=== PATIENT | male | born 1965 | race Caucasian/White ===

== ENCOUNTER 2018-05-04 16:37 | Emergency (ER) | payer OTHER, SELFPAY ==
[2018-05-04] MEDS ORDERED: Ibuprofen 800 MG TAB ONE (16:57)
== END 2018-05-04 17:43 | disposition home or self-care (01) ==
LOC: NAV ERS 16:37
DX: J06.9 Acute upper respiratory infection, unspecified (principal); F41.9 Anxiety disorder, unspecified; F32.9 Major depressive disorder, single episode, unspecified; I10 Essential (primary) hypertension; F17.220 Nicotine dependence, chewing tobacco, uncomplicated; Z79.899 Other long term (current) drug therapy
CPT/HCPCS: 87804; 99283

== ENCOUNTER 2019-04-03 16:35 | Emergency (ER) | payer BC, SELFPAY ==
--- NOTE | 2019-04-03 17:43 | RAD ---
RADIOGRAPH CHEST 2 VIEWS: DATE: 04/03/2019 HISTORY: 53-year-old male with productive cough FINDINGS: There is no airspace density, pulmonary edema, pleural effusion, pneumothorax, or cardiomegaly. IMPRESSION: No acute cardiopulmonary findings.
== END 2019-04-03 18:06 | disposition home or self-care (01) ==
LOC: NAV ERS 16:35
DX: R05 Cough (principal); F41.9 Anxiety disorder, unspecified; F32.9 Major depressive disorder, single episode, unspecified; F17.220 Nicotine dependence, chewing tobacco, uncomplicated; I10 Essential (primary) hypertension; Z79.899 Other long term (current) drug therapy
CPT/HCPCS: 71046

== ENCOUNTER 2021-10-26 17:14 | Emergency (ER) | payer BC, SELFPAY ==
[2021-10-26 17:41] LABS: #Basophils 0.2 thou/uL (0.0-0.2); #Eosinphils 0.2 thou/uL (0.0-0.7); #Lymphocytes 4.6 thou/uL (1.20-3.40); #Monocytes 0.8 thou/uL (0.11-0.59); #Neutrophils 3.3 thou/uL (1.40-6.50); %Basophils 2.2 % (0.0-1.0); %Eosinophils 2.7 % (0.0-10.0); %Lymphocytes 50.5 % (21.0-51.0); %Monocytes 8.5 % (0.0-10.0); %Neutrophils 36.2 % (42.0-75.0); Hemoglobin 14.8 g/dL (14.0-18.0); Mean Corpuscular HGB CONC 32.3 g/dL (32.0-36.0); Mean Corpuscular Hemoglobin 31.7 pg (27.0-31.0); Mean Corpuscular Volume 98.3 fL (78.0-98.0); Mean Platelet Volume 9.9 fL (7.4-10.4); Platelet Count 210 thou/uL (130-400); RBC Distribution Width 11.9 % (11.5-14.5); Red Blood Cell (RBC) Count 4.67 mill/uL (4.70-6.10); White Blood Cell (WBC) Count 9.1 thou/uL (4.8-10.8)
[2021-10-26 17:57] LABS: PTT 26.5 sec (22.9-36.1); Prothrombin Time 13.4 sec (12.0-14.7)
[2021-10-26] MEDS ORDERED: Sodium Chloride 0.9% 1,000 ML ONE ×2 (17:59→19:44)
[2021-10-26 18:04] LABS: ALT (SGPT) 65 U/L (8-55); AST (SGOT) 53 U/L (5-34); Albumin 4.2 g/dL (3.5-5.0); Alkaline Phosphatase 57 U/L (40-110); Anion Gap 22 mmol/L (10-20); BUN (Urea Nitrogen) 38 mg/dL (8.4-25.7); Bilirubin, Total 0.5 mg/dL (0.2-1.2); Calc. Creatinine Clearance 0 mL/min (70-130); Calcium 8.9 mg/dL (7.8-10.44); Carbon Dioxide 19 mmol/L (22-29); Chloride 100 mmol/L (98-107); Estimated GFR 30; Globulin 2.9 g/dL (2.4-3.5); Glucose 135 mg/dL (70-105); Potassium 3.8 mmol/L (3.5-5.1); Protein, Total 7.1 g/dL (6.0-8.3); Sodium 137 mmol/L (136-145)
[2021-10-26] MEDS ORDERED: Pantoprazole 40 MG VIAL ONE (18:25)
[2021-10-26 20:58] LABS: Bilirubin Negative (Negative); Blood, Urine Negative (Negative); Clarity Clear (Clear); Glucose, Urine (Dipstick) Negative (Negative); Ketone, Urine Negative (Negative); Leukocyte Negative (Negative); Nitrite Negative (Negative); Protein, Urine (Dipstick) Negative (Neg-Trace); Urobilinogen 0.2 mg/dL (Less than 2); pH, Urine 5.5 (5.0-9.0)
[2021-10-26 21:01] LABS: Specific Gravity, Urine 1.008 (1.002-1.036)
== END 2021-10-27 04:05 | disposition home or self-care (01) ==
LOC: NAV ERS 17:14
DX: I95.9 Hypotension, unspecified (principal); F10.129 Alcohol abuse with intoxication, unspecified; E86.0 Dehydration; I10 Essential (primary) hypertension; F17.220 Nicotine dependence, chewing tobacco, uncomplicated
CPT/HCPCS: 71045; 80053; 80307; 81003; 82274; 84484; 85025; 85610; 85730; 93005; 96361; 96374; C9113; J7050

== ENCOUNTER 2024-02-16 23:04 | Emergency (ER) | payer SELFPAY ==
[2024-02-16] MEDS ORDERED: Acetaminophen 325 MG TAB ONE (23:40)
== END 2024-02-17 00:38 | disposition home or self-care (01) ==
LOC: NAV ERS 23:04
DX: R07.89 Other chest pain (principal); M25.511 Pain in right shoulder; I10 Essential (primary) hypertension; Z79.82 Long term (current) use of aspirin
CPT/HCPCS: 71046

== ENCOUNTER 2024-03-07 17:12 | Emergency (ER) | payer SELFPAY ==
[~2024-03-07 17:12] MED LIST: Iopamidol 370 76% 100 ML VIAL ONE
[2024-03-07] MEDS ORDERED: Sodium Chloride 0.9% 1,000 ML ONE ×2 (17:46→22:07)
[2024-03-07 17:49] LABS: #Basophils 0.1 thou/uL (0.0-0.2); #Eosinophils 0.3 thou/uL (0.0-0.7); #Lymphocytes 0.8 thou/uL (1.20-3.40); #Monocytes 1.4 thou/uL (0.11-0.59); #Neutrophils 15.5 thou/uL (1.40-6.50); %Basophils 0.8 % (0.0-1.0); %Eosinophils 1.4 % (0.0-10.0); %Lymphocytes 4.5 % (21.0-51.0); %Monocytes 7.7 % (0.0-10.0); %Neutrophils 85.6 % (42.0-75.0); Hematocrit 30.9 % (42.0-52.0); Hemoglobin 9.6 g/dL (14.0-18.0); Mean Corpuscular Volume 77.5 fl (78.0-98.0); Platelet Count 405 10x3/uL (130-400); RBC Distribution Width 14.5 % (11.5-14.5); Red Blood Cell (RBC) Count 3.98 mill/uL (4.70-6.10); White Blood Cell (WBC) Count 18.1 10x3/uL (4.8-10.8)
[2024-03-07 17:55] LABS: ALT (SGPT) 24 U/L (8-55); AST (SGOT) 56 U/L (5-34); Albumin 1.4 g/dL (3.5-5.0); Alkaline Phosphatase 379 U/L (40-110); Anion Gap 14 mmol/L (10-20); BUN (Urea Nitrogen) 10 mg/dL (8.4-25.7); Bilirubin, Total 12.6 mg/dL (0.2-1.2); Calc. Creatinine Clearance 0 mL/min (70-130); Calcium 8.8 mg/dL (7.8-10.44); Carbon Dioxide 21 mmol/L (22-29); Chloride 94 mmol/L (98-107); Estimated GFR 108; Globulin 5.4 g/dL (2.4-3.5); Glucose 126 mg/dL (70-105); Potassium 3.7 mmol/L (3.5-5.1); Protein, Total 6.8 g/dL (6.0-8.3); Sodium 125 mmol/L (136-145)
[2024-03-07 18:53] LABS: Bilirubin Large (Negative); Blood, Urine Negative (Negative); Clarity Clear (Clear); Glucose, Urine (Dipstick) 100 mg/dL (Negative); Ketone, Urine Negative (Negative); Leukocyte Negative (Negative); Nitrite Negative (Negative); Protein, Urine (Dipstick) Trace mg/dL (Neg-Trace); Urobilinogen 0.2 mg/dL (Less than 2)
[2024-03-07 19:08] LABS: Bacteria/HPF 1+ HPF (None Seen); CAUTI Indications for Culture Dysuria,urgency,freq; RBC/HPF 0-3 HPF (0-3); Renal Epithelial 0-3 HPF (None Seen); Squamous Epithelial 0-3 HPF (0-3)
[2024-03-07 19:10] LABS: Urine Culture Reflex No No
[2024-03-07] MEDS ORDERED: Morphine 4 MG/ML VIAL ONE (19:12)
[2024-03-07] MEDS ORDERED: Ondansetron PF 4 MG/2 ML Vial ONE (19:13)
[2024-03-07] MEDS ORDERED: Sodium Chloride 0.9% 100 ML ONE (19:56)
[2024-03-07] MEDS ORDERED: Piperacillin/Tazobactam 3.375 GM VIAL ONE (19:56)
[2024-03-07 21:32] LABS: Anisocytosis SLIGHT = 6-15 cells (100X) (0-5/hpf); Hypochromia SLIGHT = 6-15 cells (100X) (0-5/hpf); Platelet Adequacy Comment Appears Increased; Poikilocytosis SLIGHT = 6-15 cells (100X) (0-5/hpf); Polychromasia SLIGHT = 2-3 cells (100X) (0-2/hpf)
== END 2024-03-08 00:50 | disposition short-term general hospital (02) ==
LOC: NAV ERS 17:12
DX: R17 Unspecified jaundice (principal); C24.9 Malignant neoplasm of biliary tract, unspecified; I10 Essential (primary) hypertension
CPT/HCPCS: 36415; 74177; 80053; 81001; 83605; 85025; 87040; 96361; 96365; 96375; J2272; J2405; J2543; J7030; Q9967